=== PATIENT | male | born 1995 | race Caucasian/White ===

== ENCOUNTER 2020-09-26 11:24 | Emergency (ER) | payer OTHER, SELFPAY ==
[2020-09-26 11:26] VITALS: BP 150/87; PULSE 75; RESP 16; TEMP 36.9; O2SAT 98; BMI 29.2
--- NOTE | 2020-09-26 11:38 | RAD_ITS ---
STUDY: X-RAY - RIGHT HAND REASON FOR EXAM: Male, 24 years old. Bruising and swelling following injury. TECHNIQUE: 3 view(s) of the hand. COMPARISON: None. FINDINGS: Normal radiocarpal articulation. Normal distal radioulnar joint. Normal visualized carpal bones. Normal carpal articulations Normal carpometacarpal articulation of the thumb. Normal second through fifth carpometacarpal joints. Normal metacarpi. Normal metacarpophalangeal joint of the thumb. Normal interphalangeal joint of the thumb. Normal proximal and distal phalanges of the thumb. Normal metacarpophalangeal joints of the second through fifth fingers. Normal proximal and distal interphalangeal joints of the second through fifth fingers. Normal phalanges of the second through fifth fingers. Soft tissue swelling. RAD/Hand Min 3 Views IMPRESSION: Soft tissue swelling. Electronically Signed: Duglas Rich MD at 12:14 EDT , Service support ,
--- NOTE | 2020-09-26 11:38 | RAD_ITS ---
STUDY: X-RAY - RIGHT KNEE REASON FOR EXAM: Male, 24 years old. Fall, pain TECHNIQUE: 3 view(s) of the knee. COMPARISON: None. FINDINGS: Normal visualized distal femur. Normal visualized proximal tibia and fibula. Normal proximal tibiofibular articulation. Normal medial femorotibial compartment. Normal lateral femorotibial compartment. Normal patellofemoral articulation. Small joint effusion. RAD/Knee 4 or More Views IMPRESSION: Small joint effusion. Electronically Signed: Duglas Rich MD at 12:15 EDT , Service support ,
--- NOTE | 2020-09-26 11:38 | ED.VIS.LOWEX ---
HPI History of Present Illness Chief Complaint: Lower Extremity Injury Informant: patient Narrative Narrative: Patient presents with right knee pain and right hand pain. He states that yesterday he was playing baseball when he was running down the first baseline. He was tripped up and landed directly onto his right knee. He has had pain with walking ever since. Is worse with movement. He complains of pain on the medial and posterior lateral aspects of the knee. He denies any history of any fractures or surgeries to the knee. He tried Advil without any relief. He has been dealing with right thumb pain for the past week. He did reaggravated the injury yesterday. He has noticed a lot of swelling and bruising on the palm side at the base of the thumb. Pain is worse with movement of this area as well. PFSH PFSH Home Medications naproxen 500 mg PO BID PRN #20 tab 09/26/20 [Rx Last Taken Unknown] Allergy/AdvReac Type Severity Reaction Status Date / Time No Known Allergies Allergy Verified 09/26/20 11:24 Social History Smoking Status: Never smoker ROS ROS ED Constitutional Constitutional ED: Denies chills or fever(s) Eyes Eyes: Denies blurry vision, change in vision or diplopia ENT ENT ED: Denies ear pain, rhinorrhea or sore throat Cardiovascular Cardiovascular: Denies chest pain or palpitations Respiratory/Chest Respiratory/Chest: Denies cough, dyspnea or sputum Gastrointestinal Gastrointestinal: Denies abdominal pain, diarrhea, nausea or vomiting Genitourinary Genitourinary ED: Denies dysuria, hematuria or urinary frequency Musculoskeletal Musculoskeletal: Reports other Details: Right knee and hand pain Integumentary Denies change in pigmentation or rash Neurologic Neurologic: Denies headache(s), numbness or weakness Psychiatric Psychiatric: Denies anxiety or depression Endocrine Endocrinology: Denies polydipsia or polyuria EXAM Physical Exam Const Vital Signs: 09/26/20 11:26 Temperature 98.4 F Temperature Source Temporal Pulse Rate 75 Respiratory Rate 16 Blood Pressure 150/87 H Blood Pressure Mean 108 Pulse Ox 98 Oxygen Delivery Method Room Air Positive well nourished and well developed General Appearance ED: well developed HEENT normocephalic and atraumatic Eyes PERRL Extremity Extremity Narrative: Right hand exam reveals some mild swelling over the thenar eminence. He does have bruising and ecchymosis over this area as well. He has full range of motion with pain at the extreme of extension of his thumb. No tenderness to palpation. The right knee has tenderness to palpation around the patella and the right posterior lateral area near the hamstring tendons. Negative anterior and posterior drawer sign. He has full range of motion with pain with movement. There is an abrasion over the patellar area. No swelling over the patella or erythema seen. Neuro oriented x3 and CN's II-XII intact bilaterally Sensorium / Orientation: alert Motor Exam: strength 5/5 throughout Psych mental status grossly normal Skin Rashes: no rashes MDM MDM MDM Narrative Medical decision making narrative: X-ray the right hand reveals some soft tissue swelling but no fracture. X-ray of the right knee reveals a small joint effusion. He likely has a right hand contusion and sprain of the right knee. Patient will be given naproxen for pain control. Jb wrap will be applied. If his symptoms persist for 1 week he is when to call orthopedics for follow-up. Radiography Diagnostic Testing: Radiology Impression Hand X-Ray 09/26/20 11:38 IMPRESSION: Soft tissue swelling. Electronically Signed: Duglas Rich MD at 12:14 EDT , Service support , Knee X-Ray 09/26/20 11:38 IMPRESSION: Small joint effusion. Electronically Signed: Duglas Rich MD at 12:15 EDT , Service support , Discharge Plan Triage Chief Complaint: Lower Extremity Injury ED Provider: Jason Schreiber Dx/Rx/DC Orders Clinical Impression: Contusion of hand, right, Right knee sprain Prescriptions: New naproxen 500 MG tablet 500 mg PO BID PRN Qty: 20 RF: 0 Primary Care Provider: Care Physician,No Primary Referrals: Paulino Lebron MD [STAFF PHYSICIAN] - Care Physician,No Primary [Primary Care Provider] - Disposition Disposition: Home, self care
== END 2020-09-26 12:46 | disposition home or self-care (01) ==
PROVIDERS: Emergency Provider Emergency Medicine
DX: S83.91XA Sprain of unspecified site of right knee, initial encounter (principal); S60.221A Contusion of right hand, initial encounter; W01.0XXA Fall on same level from slipping, tripping and stumbling without subsequent striking against object, initial encounter; Y93.64 Activity, baseball; Y92.9 Unspecified place or not applicable; Y99.8 Other external cause status
CPT/HCPCS: 73130; 73564; 99283